=== PATIENT | female | born 1945 | race Caucasian/White ===

== ENCOUNTER 2021-04-28 09:53 | Outpatient (CLI) | payer MEDICARE, SELFPAY ==
--- NOTE | 2021-04-28 09:57 | BI_ITS ---
MAMMOGRAPHY - BILATERAL SCREENING REASON FOR EXAM: Female, 76 years old. Routine annual screening examination. PERTINENT HISTORY: Non-contributory. TECHNIQUE: Digital bilateral breast mo (3D mammographic acquisition) in the CC and MLO projections. 2-D mediolateral oblique (MLO) and craniocaudad (CC) views of both breasts were obtained. CAD: Full Field Digital Mammography with Computer Added Detection was performed. COMPARISON: Comparison is made with prior outside examination of 11/09/2019. FINDINGS: Breast Composition: There are scattered areas of fibroglandular density. There are no dominant masses or suspicious calcifications. Stable small benign-appearing bilateral axillary lymph nodes. No other significant abnormalities are identified. There has been no significant change since the prior study. BI/SCRN MAMM (CAD)W/MO BILAT IMPRESSION: Stable bilateral screening mammogram. Yearly follow-up mammogram recommended. (A) ASSESSMENT CATEGORY: BIRADS Category 2: Benign. A letter regarding these results will be sent to the patient by the facility within 30 days. Approximately 10% of breast cancers are not detected by mammography. A normal mammogram should not delay biopsy of a clinically suspicious abnormality. [id number] Electronically Signed: Baljeet Metcalf MD at 12:29 EDT ,
== END 2021-04-28 23:59 | disposition home or self-care (01) ==
LOC: OPBI 09:55
PROVIDERS: PCP Internal Medicine; Visit Provider Internal Medicine
DX: Z12.31 Encounter for screening mammogram for malignant neoplasm of breast (principal)
CPT/HCPCS: 77063; 77067

== ENCOUNTER → 2021-07-08 | Outpatient (CLI) | payer MEDICARE, SELFPAY ==
--- NOTE | 2021-07-08 08:20 | BD_ITS ---
STUDY: DUAL ENERGY X-RAY ABSORPTIOMETRY / DXA REASON FOR EXAM: Female, 76 years old. [id number]. Patient is postmenopausal. TECHNIQUE: Bone Mineral Density (BMD) measurements of lumbar spine and bilateral hips were obtained. COMPARISON: None. FINDINGS: Lumbar Spine (L1-L4): g/cm2 (1.006) / T-score (0.2) / Z-score (2.5) Findings are suggestive of normal bone density with a low fracture risk. Left Femur Total: g/cm2 (0.910) / T-score (-0.3) / Z-score (1.5) Left Femoral Neck: g/cm2 (0.758) / T-score (-0.8) / Z-score (1.2) Right Femur Total: g/cm2 (0.911) / T-score (-0.3) / Z-score (1.5) Right Femoral Neck: g/cm2 (0.728) / T-score (-1.1) / Z-score (1.0) BD/Dexa Bone Density Study IMPRESSION: The patient is considered osteopenic as outlined below according to World Anthony Organization (WHO) criteria with a low fracture risk. Reference Information: The T-score is the number of standard deviations above or below the standard which is normal for young adults at their peak bone mineral density. The World Health Organization (WHO) interprets the T-scores as follows: Above -1 Normal bone density Between -1 and -2.5 Osteopenia Equal to / or below -2.5 Osteoporosis As a practical clinical guideline, osteopenia may be graded as follows: Mild -1 through -1.5 Moderate -1.6 through -2.0 Severe -2.1 through -2.4 The Z-score is the number of standard deviations above or below age-matched controls. A Z-score of less than -1.5 would be considered abnormal. References: 1. NIH Osteoporosis and Related Bone Diseases www osteo.org 2. International Society for Clinical Densitometry www iscd.org 3. National Osteoporosis Foundation www nof.org Electronically Signed: Baljeet Metcalf MD at 8:27 EDT ,
== END | disposition home or self-care (01) ==
LOC: OPBD 08:12
PROVIDERS: PCP Internal Medicine; Visit Provider Internal Medicine
DX: Z78.0 Asymptomatic menopausal state (principal)
CPT/HCPCS: 77080

== ENCOUNTER → 2022-02-24 | Outpatient (CLI) | payer MEDICARE, SELFPAY ==
--- NOTE | 2022-02-24 10:25 | RAD_ITS ---
STUDY: X-RAY - RIGHT FOOT CLINICAL: Female, 77 years old. Pain. TECHNIQUE: 3 view(s) of the foot. COMPARISON: None. FINDINGS: Osteopenia. Mild arthrosis of the tibiotalar joint. Mild arthrosis of the subtalar joint. Mild arthrosis of the TMT joints. Moderate arthrosis of the MTP and IP joints with hammertoe deformities. Minimal hallux valgus deformity. The soft tissue structures are unremarkable. RAD/Foot min 3 Views IMPRESSION: Osteopenia with osteoarthritic changes as described. Minimal hallux valgus deformity. No acute abnormality or evidence of erosive changes. Electronically Signed: Connor Bermudez, at 12:39 EST ,
[2022-02-24 11:30] LABS: Anion Gap 2 (5-15); BUN 14 mg/dL (7-18); Calcium,Total 8.7 mg/dL (8.5-10.1); Chloride 109 mmol/L (98-107); Cholesterol 173 mg/dL (200); Creatinine, Serum 0.74 mg/dL (0.55-1.02); EST Glomerular Filtration Rate 82 mL/min (>60); Est Glom Filt Rate - Afr Amer 99 mL/min (>60); Glucose 101 mg/dL (74-106); High Density Lipoprotein 67 mg/dL; Potassium 4.1 mmol/L (3.5-5.1); Sodium Level 140 mmol/L (136-145); Thyroid Stim Hormone (TSH) 0.93 uIU/mL (0.358-3.74); Triglycerides 133 mg/dL; Very Low Density Lipoprotein 27 mg/dL (5-40)
== END | disposition home or self-care (01) ==
LOC: RAD 10:22
PROVIDERS: PCP Internal Medicine; Referring Provider Internal Medicine; Visit Provider Internal Medicine
DX: M25.571 Pain in right ankle and joints of right foot (principal); I10 Essential (primary) hypertension; E78.5 Hyperlipidemia, unspecified; R79.89 Other specified abnormal findings of blood chemistry
CPT/HCPCS: 36415; 73630; 80048; 80061; 84443

== ENCOUNTER 2024-09-18 11:49 | Emergency (ER) | payer MEDICARE, SELFPAY ==
[2024-09-18 11:50] VITALS: BP 167/67; PULSE 66; RESP 14; TEMP 36.8; O2SAT 97; BMI 32.9
[2024-09-18 11:54] VITALS: O2SAT 100
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
[2024-09-18 12:50] VITALS: BP 159/61; PULSE 63; RESP 14; O2SAT 100
[2024-09-18 13:00] VITALS: BP 211/65; PULSE 54; RESP 16; O2SAT 100
[2024-09-18 14:00] VITALS: BP 185/54; PULSE 60; RESP 16; O2SAT 100
[2024-09-18 14:31] VITALS: BP 185/65; PULSE 66; RESP 16; TEMP 36.3; O2SAT 97
== END 2024-09-18 14:31 | disposition home or self-care (01) ==
PROVIDERS: Emergency Provider Emergency Medicine; PCP Internal Medicine; Visit Provider Emergency Medicine
DX: S70.02XA Contusion of left hip, initial encounter (principal); I10 Essential (primary) hypertension; Y93.01 Activity, walking, marching and hiking; Y92.89 Other specified places as the place of occurrence of the external cause; V03.00XA Pedestrian on foot injured in collision with car, pick-up truck or van in nontraffic accident, initial encounter; S80.02XA Contusion of left knee, initial encounter
CPT/HCPCS: 73502; 73564; 96374; 99283; A4216